=== PATIENT | female | born 1970 | race Caucasian/White ===

== ENCOUNTER 2016-08-09 17:02 | Emergency (ER) | payer MEDICAID ==
[~2016-08-09] VITALS: Wt 59.5 kg
[2016-08-09 17:48] LABS: URINE BLOOD (Dip) POC Trace-intact (NEGATIVE)
--- NOTE | 2016-08-09 17:59 | RADRPT ---
PROCEDURE: XR Chest. CLINICAL INDICATION: Pain. TECHNIQUE: Single frontal chest x-ray. COMPARISON: None available. FINDINGS: The cardiomediastinal silhouette is unremarkable. No pneumothorax, pleural effusion or consolidation is seen. No acute osseous abnormality is noted. IMPRESSION: 1. No acute cardiopulmonary abnormality. RPTAT: PP .Adriel Valentine MD, Date Time Electronically viewed and signed by .Adriel Valentine MD, on 08/09/2016 17:59 .N/
[2016-08-09] MEDS ORDERED: ACET1TAB40 PO (18:25)
[2016-08-09] MEDS ORDERED: METH500T PO (18:25)
--- NOTE | 2016-08-29 10:25 | ERD ---
ER Documentation Chief Complaint Date/Time DATE: 08/29/16 TIME: 10:22 Chief Complaint BACK PAIN, DIAGNOSED WITH PNEUMONIA, DONE WITH Z-PACK HPI This 46-year-old female complains of right upper back pain worsening over the last few days. Is worse with movement. She did complete a Z-Ezra for upper respiratory infection the last few days. Denies fevers, shortness breath, leg swelling hemoptysis. She denies syncope. ROS All systems reviewed and are negative except as per history of present illness. Medications Home Meds Active Scripts Methocarbamol* (Robaxin*) 500 Mg Tab, 500 MG PO Q6, #15 TAB Prov:LOREN CORADO MD 08/09/16 Acetaminophen with Codeine (Acetaminophen-Cod #3 Tablet) 1 Each Tablet, 1 TAB PO Q6H Y for PAIN, #15 TAB Prov:LOREN CORADO MD 08/09/16 Allergies Allergies: Coded Allergies: No Known Allergy (Unverified , 06/09/14) PMhx/Soc Medical and Surgical Hx: pt denies Medical Hx, pt denies Surgical Hx Hx Alcohol Use: No Hx Substance Use: No Hx Tobacco Use: No Smoking Status: Never smoker Physical Exam Physical Exam Const: [] Alert, [id number]-fniqletko . Head: Atraumatic Eyes: Normal Conjunctiva ENT: Normal External Ears, Nose and Mouth. Neck: Full range of motion..~ No meningismus. Resp: Clear to auscultation bilaterally Cardio: Regular rate and rhythm, no murmurs Abd: Soft, non tender, non distended. Normal bowel sounds Skin: No petechiae or rashes Back: No midline or flank tenderness. There is some tenderness and spasm in the right upper infraspinatus area paraspinous muscles of the thoracic spine. There is no skin changes, bony deformities. Ext: No cyanosis, or edema Neur: Awake and alert Psych: Normal Mood and Affect Results 24 hrs Laboratory Tests Test 08/09/16 17:47 Bedside Urine pH (LAB) 7.0 Bedside Urine Protein (LAB) Trace Bedside Urine Glucose (UA) Negative Bedside Urine Ketones (LAB) Negative Bedside Urine Blood Trace-intact Bedside Urine Nitrite (LAB) Negative Bedside Urine Leukocyte Esterase (L Negative Procedures/MDM Chest X-ray 1V Interpreted by me: Soft Tissue: No acute abnormalities Bones: No acute abnormalities Mediastinum/Cardiac Silhouette/Lungs: [No acute abnormalities]. Impression- normal 1 view chest x-ray Patient presents with upper back pain with muscle spasm. Is likely muscular skeletal due to coughing. Signs and symptoms not consistent with pneumonia, PE , epidural abscess, additional emergent conditions. She will treated with Tylenol 3 and Robaxin. The patient was stable with no new complaints during the ER course. Clinically, there is no current evidence to suggest meningitis, sepsis, acute abdomen, pneumonia, acute coronary syndrome, pulmonary embolism, or any other emergent condition appearing to require further evaluation or hospitalization. The patient should certainly return for any new or worsening symptoms per the aftercare instructions. They should otherwise follow-up with her primary care doctor for reevaluation this week. Departure Diagnosis: Primary Impression: Back pain Back pain location: thoracic back pain Chronicity: acute Back pain laterality: right Qualified Code: M54.6 - Acute right-sided thoracic back pain Condition: Stable Patient Instructions: Thoracic Strain Referrals: [facility] Usted se josue hecho un examen mdico de control que le indica que no est en rochelle condicin que requiera tratamiento urgente en el Departamento de Emergencia. Un estudio ms profundo y el tratamiento de montemayor condicin pueden esperar sin ningn riesgo hasta que usted sea atendida/o en el consultorio de montemayor mdico o rochelle cl cliff. Es responsabilidad suya arreglar rochelle camryn para el seguimiento del naila. MANEJO DE CONDICIONES NO URGENTES EN EL FUTURO 1) Si usted tiene un mdico de atencin primaria: Usted debera llamar a montemayor mdico de atencin primaria antes de venir al departamento de emergencia. Despus de las horas de consultorio, montemayor doctor o montemayor asociado/a est disponible por telfono. El mdico o enfermero de mannie en el servicio telefnico puede asesorarle por cristal medio para atender el problema, o naila contrario se puede programar rochelle camryn. 2) Si usted no tiene un mdico de atencin primaria: Llame al mdico o clnica de referencia que aparece abajo vinicius las horas de consultorio para hacer rochelle camryn para que le vean. CLINICAS: [place] [id number] [phone] [facility] [phone] [facility] [phone] [place] [address] [phone] [place] [address] [phone] [facility] [phone] [address] Additional Instructions: Pain and tenderness likely due to muscle spasm or tendinitis. Recommend massage at home. Recommend primary doctor for physical and further evaluation. Recheck otherwise for new or worsening symptoms. LOREN CORADO MD Aug 29, 2016 10:24
== END 2016-08-09 18:53 | disposition home or self-care (01) ==
LOC: FTE 17:02
DX: M54.6 Pain in thoracic spine (principal)
CPT/HCPCS: 71010; 81003

== ENCOUNTER 2017-03-03 22:00 | Emergency (ER) | payer SELFPAY ==
[~2017-03-03] VITALS: Ht 160 cm; Wt 56.0 kg
[~2017-03-03 22:00] MED LIST: ACET1TAB40 PO; METH500T PO
[2017-03-03 22:15] VITALS: Ht 160 cm; Wt 56.0 kg
[2017-03-04] MEDS ORDERED: IBUP400T22 PO (00:50)
--- NOTE | 2017-03-04 02:40 | ERD ---
ER Documentation Chief Complaint Date/Time DATE: 03/04/17 TIME: 02:38 Chief Complaint RODRIGUEZ x a year, worst today, she's shakey, too HPI 47-year-old female patient with no significant past medical history presents the ED complaining of a headache that started intermittently for 3 days. Reports that this also occurred last year. Reports that she feels nervous and shaky. Reports that she felt better after taking ibuprofen. Denies any chest pain, shortness of breath, fever, chills, nausea, vomiting, blurred vision, vision loss. Reports that she took ibuprofen prior to arrival and feels better. Denies any head trauma. Denies any seizures, fainting. ROS All systems reviewed and are negative except as per history of present illness. Medications Home Meds Active Scripts Ibuprofen* (Motrin*) 400 Mg Tab, 400 MG PO Q6, #30 TAB Prov:DEEPIKA SORTO PA-C 03/04/17 Methocarbamol* (Robaxin*) 500 Mg Tab, 500 MG PO Q6, #15 TAB Prov:LOREN CORADO MD 08/09/16 Acetaminophen with Codeine (Acetaminophen-Cod #3 Tablet) 1 Each Tablet, 1 TAB PO Q6H Y for PAIN, #15 TAB Prov:LOREN CORADO MD 08/09/16 Allergies Allergies: Coded Allergies: No Known Allergy (Unverified , 06/09/14) PMhx/Soc Medical and Surgical Hx: pt denies Medical Hx, pt denies Surgical Hx Hx Alcohol Use: No Hx Substance Use: No Hx Tobacco Use: No Smoking Status: Never smoker Physical Exam Vitals Vital Signs Date Time Temp Pulse Resp B/P Pulse Ox O2 Delivery O2 Flow Rate FiO2 03/03/17 22:15 98.0 83 18 129/82 100 Physical Exam Const: [id number]-unyebllvo, well-nourished. In no acute distress. Head: Atraumatic, normocephalic Eyes: Normal Conjunctiva without injection. No purulent discharge. PERRLA. EOMI ENT: Normal external ear. Ear canal without erythema. Tympanic membrane pearly hudson without effusion or bulging. Nasal canal clear with normal turbinates. Moist oropharynx without tonsillar exudates. Non-erythematous pharynx. Uvula midline. No drooling. No trismus. Neck: No cervical midline tenderness. Full range of motion. No meningismus. No cervical lymphadenopathy. No JVD. Resp: Clear to auscultation bilaterally. No wheezing, rhonchi, rales, or crackles. No accessory muscle use. No retractions. Cardio: Regular rate and rhythm. No murmurs, rubs or gallops. Abd: Soft, non tender, non distended. Normal bowel sounds. No palpable masses. No rebound tenderness. No guarding. Negative McBurney's Point. Negative Barboza's Sign. Skin: Normal skin turgor. No petechiae or rashes Back: No midline tenderness. No CVA tenderness. Ext: No cyanosis, or edema. Distal pulses intact bilaterally. Neur: Awake and alert. Normal gait. Normal coordination. Cranial Nerves II- VII intact. Normal finger to nose. Muscle strength 5/5. Sensation intact. Psych: Normal Mood and Affect Procedures/MDM 47-year-old female patient with no significant past medical history presents the ED complaining of a intermittent headache that started 3 days ago. Patient is afebrile and nontoxic-appearing. Patient has normal vital signs. Patient symptoms improved after taking ibuprofen. Differentials include tension vs. migraine headaches. Instructed patient that if her symptoms do persist, she should follow-up with a neurologist for further evaluation and treatment. There is low suspicion for intracranial bleed, subarachnoid hemorrhage, cluster headaches, meningitis, TIA, stroke, subdural hematoma, epidural hematoma, cavernous sinus thrombosis, carotid dissection, or other emergent conditions. Discharge medications: Ibuprofen Follow up with primary care physician in 1-2 days. Instructed patient to return to the ED sooner for any worsening symptoms. Patient's questions were answered. Patient understood and agreed with discharge plan. Patient discharged stable. Departure Diagnosis: Primary Impression: Headache Headache type: unspecified Headache chronicity pattern: unspecified pattern Intractability: not intractable Qualified Code: R51 - Nonintractable headache, unspecified chronicity pattern, unspecified headache type Condition: Stable Patient Instructions: Your Body's Response to Anxiety, Stress Relief: Relaxation, Anxiety Reaction, Headache, Unspecified Referrals: [facility] YOU HAVE RECEIVED A MEDICAL SCREENING EXAM AND THE RESULTS INDICATE THAT YOU DO NOT HAVE A CONDITION THAT REQUIRES URGENT TREATMENT IN THE EMERGENCY DEPARTMENT. FURTHER EVALUATION AND TREATMENT OF YOUR CONDITION CAN WAIT UNTIL YOU ARE SEEN IN YOUR DOCTORS OFFICE WITHIN THE NEXT 1-2 DAYS. IT IS YOUR RESPONSIBILITY TO MAKE AN APPOINTMENT FOR FOLOW-UP CARE. IF YOU HAVE A PRIMARY DOCTOR --you should call your primary doctor and schedule an appointment IF YOU DO NOT HAVE A PRIMARY DOCTOR YOU CAN CALL OUR PHYSICIAN REFERRAL HOTLINE AT IF YOU CAN NOT AFFORD TO SEE A PHYSICIAN YOU CAN CHOSE FROM THE FOLLOWING [facility] [address] [facility] [address] [facility] [address] [facility] [address] [facility] [address] [facility]. [facility] [address] [facility]. [facility] YOU HAVE RECEIVED A MEDICAL SCREENING EXAM AND THE RESULTS INDICATE THAT YOU DO NOT HAVE A CONDITION THAT REQUIRES URGENT TREATMENT IN THE EMERGENCY DEPARTMENT. FURTHER EVALUATION AND TREATMENT OF YOUR CONDITION CAN WAIT UNTIL YOU ARE SEEN IN YOUR DOCTORS OFFICE WITHIN THE NEXT 1-2 DAYS. IT IS YOUR RESPONSIBILITY TO MAKE AN APPOINTMENT FOR FOLOW-UP CARE. IF YOU HAVE A PRIMARY DOCTOR --you should call your primary doctor and schedule and appointment IF YOU DO NOT HAVE A PRIMARY DOCTOR YOU CAN CALL OUR PHYSICIAN REFERRAL HOTLINE AT . IF YOU CAN NOT AFFORD TO SEE A PHYSICIAN YOU CAN CHOSE FROM THE FOLLOWING [facility]: [facility] [address] [place] [address] [facility] [address] [place] [address] [facility] [address] [place] [address] [facility] Additional Instructions: Visite a montemayor rosetta jackson para un EXAMEN para rochelle referencia a un neurlogo para evaluacin adicional y tratamiento. Regrese a estas instalaciones si no se mejora zen esperbamos o zen le dijimos. DEEPIKA SORTO PA-C Mar 04, 2017 02:40
== END 2017-03-04 01:24 | disposition home or self-care (01) ==
LOC: FTE 22:00
DX: R51 Headache (principal)
CPT/HCPCS: 99283